=== PATIENT | female | born 1940 | race Caucasian/White ===

== ENCOUNTER → 2024-11-21 14:42 | Outpatient (BNVA) | payer MEDICARE, BC, SELFPAY | PROVIDERS: Visit Provider Internal Medicine Cardiovascular Disease | DX: R07.9 Chest pain, unspecified (principal); I44.0 Atrioventricular block, first degree | CPT/HCPCS: 93005 ==

== ENCOUNTER → 2024-11-21 15:42 | Outpatient (BNVA) | payer MEDICARE, BC, SELFPAY | PROVIDERS: Visit Provider Internal Medicine Cardiovascular Disease | DX: R55 Syncope and collapse (principal) ==

== ENCOUNTER → 2025-03-05 16:13 | Outpatient (BNVA) | payer MEDICARE, SELFPAY | PROVIDERS: Visit Provider Internal Medicine Cardiovascular Disease | DX: I42.9 Cardiomyopathy, unspecified (principal); I47.10 Supraventricular tachycardia, unspecified; I10 Essential (primary) hypertension; R60.9 Edema, unspecified; Z87.891 Personal history of nicotine dependence | CPT/HCPCS: 99214 ==